=== PATIENT | female | born 1960 | race Caucasian/White ===

== ENCOUNTER 2019-05-07 08:51 | Emergency (ER) | payer BC ==
[~2019-05-07] VITALS: Ht 160 cm; Wt 77.1 kg
[~2019-05-07 08:51] MED LIST: ASACOL400 MG PO; AUGMENTIN 875875 MG PO; FLUOXETINE20 MG PO; SIMCOR 1000 MG-1 TE1 PO; WELCHOL625 MG PO
[2019-05-07] MEDS ORDERED: MEDROL DOSEPAK4 MG PO (10:51)
[2019-05-07] MEDS ORDERED: NAPROSYN500 MG PO (10:51)
[2019-05-07] MEDS ORDERED: METHOCARBAMOL500 M1 PO (10:51)
== END 2019-05-07 11:16 | disposition home or self-care (01) ==
LOC: ED 08:51
DX: S16.1XXA Strain of muscle, fascia and tendon at neck level, initial encounter (principal); Z79.899 Other long term (current) drug therapy; X50.9XXA Other and unspecified overexertion or strenuous movements or postures, initial encounter; Y93.89 Activity, other specified; Y92.89 Other specified places as the place of occurrence of the external cause; Y99.0 Civilian activity done for income or pay